=== PATIENT | female | born 1955 | race Caucasian/White ===

== ENCOUNTER 2023-11-27 20:20 | Emergency (ER) | payer MEDICARE ==
[~2023-11-27] VITALS: Ht 160 cm; Wt 104.0 kg
[2023-11-27 20:39] VITALS: O2SAT 99
[2023-11-27] MEDS: ACETAMINOPHEN 500MG TABLET PO ONE (21:19)
[2023-11-27 23:51] VITALS: BP 166/81; PULSE 60; RESP 18; TEMP 97.9
== END 2023-11-27 23:51 | disposition home or self-care (01) ==
LOC: ER 20:20
DX: S06.0X0A Concussion without loss of consciousness, initial encounter (principal); J45.909 Unspecified asthma, uncomplicated; Z96.659 Presence of unspecified artificial knee joint; W18.39XA Other fall on same level, initial encounter; Y93.89 Activity, other specified; Y92.89 Other specified places as the place of occurrence of the external cause; Y99.8 Other external cause status
CPT/HCPCS: 99284